=== PATIENT | female | born 1990 | race Caucasian/White ===

== ENCOUNTER → 2018-07-30 | Outpatient (REF) | payer BC ==
[~2018-07-30] MED LIST: ACETTAB3 OR; AMITRIPTYLIN25 MG OR; AMITRIPTYLIN25 MG PO; BROMOCRIPTIN2.5 M1 PO; CALAN PO; CARAFATE1 GM/10 M1 PO; CELEXA40 M1 OR; CIPRO500 MG OR; CITALOPRAM10 MG OR; CRYSELLE-2828 TABS OR; FERR SULFATE325 MG PO; FIORICET PO; FIORICET/COD OR; FLEXERIL PO; GABAPENTIN300 M1 OR; IBUPROFEN800 MG PO; IFEREX 150 OR; IMITREX25 MG OR; L-CARNITINE500 MG OR; LEVAQUIN500 MG OR; LOESTRIN 24 OR; LORTAB 5 OR; LORTAB 7.57.5 MG PO; MAXALT-MLT10 MG OR; MUPIROCIN2 % EX; NAPROSYN500 MG PO; NO; NO HOME MEDS; OMNI-PAC300 MG OR; PERCOCET 5/325M1 TAB OR; PRILOSEC20 MG/CAP PO; PRILOSEC40 MG PO; PROCHLORPER10 MG OR; REGLAN10 MG PO; SYNTHROID112 MCG PO; SYNTHROID125 MCG PO; SYNTHROID75 MCG OR; SYNTHROID75 MCG PO; TOPAMAX25 MG OR; TRI-SPRINTEC OR; VITAMIN B-121000 MCG PO; VITAMIN D32000 UNIT PO; ZANAFLEX4 M2 PO; ZOFRAN ODT4 MG PO
[2018-07-30 10:53] LABS: URINE BILIRUBIN - DIPSTICK NEGATIVE (NEGATIVE); URINE BLOOD DIPSTICK LARGE (NEGATIVE); URINE GLUCOSE - DIPSTICK NEGATIVE (NEGATIVE); URINE KETONE NEGATIVE (NEGATIVE); URINE LEUK ESTERASE NEGATIVE (Negative); URINE NITRITE - DIPSTICK NEGATIVE (Negative); URINE PH 7.5 (4.5-8.0); URINE PROTEIN - DIPSTICK 100 mg/dL (NEG-TRACE); URINE SPECIFIC GRAVITY 1.015; URINE UROBILINOGEN - DIPSTICK 0.2 E.U./dL (0.2)
[2018-07-30 10:54] LABS: HEMATOCRIT 37.4 % (37.0-47.0); HEMOGLOBIN 11.5 g/dl (12.0-16.0); IMMATURE GRANULOCYTES 0.3 % (0.0-5.0); MEAN CORPUSCULAR HGB 25.1 pG CALC (26.0-32.0); MEAN CORPUSCULAR HGB CONC 30.7 g/L CALC (32.0-36.0); NEUT# 5.14 thou/uL (2.00-7.15); RED BLOOD COUNT 4.58 mill/uL (4.20-5.60); RED CELL DISTRI WIDTH 14.6 % (11.5-15.5)
[2018-07-30 10:58] LABS: URINE CLARITY CLOUDY; URINE COLOR RED
[2018-07-30 11:00] LABS: URINE BACTERIA RARE hpf; URINE RBC TNTC RBC/hpf (0-5)
[2018-07-30 11:01] LABS: MEAN CELL VOLUME 81.7 fL CALC (80.0-100.0)
[2018-07-30 11:34] LABS: ALBUMIN 4.5 g/dL (3.2-5.0); ALKALINE PHOSPHATASE 114 u/l (38-126); AMYLASE < 30 u/l (30-110); BILIRUBIN, TOTAL 0.5 mg/dL (0.0-1.4); BUN 10 mg/dL (7-17); BUN/CREATININE RATIO 12 (12-20 (CALC)); CARBON DIOXIDE 26 mmol/l (22-30); CHLORIDE 103 mmol/l (95-108); CREATININE 0.8 mg/dL (0.5-1.0); GFR > 60 ML/MIN (>=60 (CALC)); GFR FOR AFR.AMER. > 60 ML/MIN (>=60 (CALC)); LIPASE 54 u/l (23-300); SODIUM 141 mmol/l (137-146); TOTAL PROTEIN 7.8 g/dL (6.3-8.2)
[2018-07-30 12:03] LABS: ANION GAP 17 (6-22 (CALC)); POTASSIUM 4.9 mmol/l (3.5-5.1); SGOT/AST 78 u/l (14-36)
== END | disposition home or self-care (01) | DRG 392 ==
LOC: LAB 10:22
PROVIDERS: ATTEND Internal Medicine
DX: R10.12 Left upper quadrant pain (principal); B96.1 Klebsiella pneumoniae [K. pneumoniae] as the cause of diseases classified elsewhere

== ENCOUNTER → 2018-08-03 | Outpatient (REF) | payer BC | END | disposition home or self-care (01) | DRG 392 | LOC: CT 12:52 | PROVIDERS: ATTEND Internal Medicine | DX: R10.13 Epigastric pain (principal); R10.32 Left lower quadrant pain ==

== ENCOUNTER 2019-04-13 18:43 | Emergency (ER) | payer BC ==
[~2019-04-13] VITALS: Ht 147.3 cm; Wt 80.0 kg
[2019-04-13 19:35] LABS: HEMATOCRIT 35.7 % (37.0-47.0); IMMATURE GRANULOCYTES 0.2 % (0.0-5.0); MEAN CELL VOLUME 79.9 fL CALC (80.0-100.0); MEAN CORPUSCULAR HGB 24.6 pG CALC (26.0-32.0); MEAN CORPUSCULAR HGB CONC 30.8 g/L CALC (32.0-36.0); NEUT# 8.29 thou/uL (2.00-7.15); RED BLOOD COUNT 4.47 mill/uL (4.20-5.60); RED CELL DISTRI WIDTH 15.6 % (11.5-15.5)
[2019-04-13] MEDS ORDERED: OMEPRAZOLE DR20 MG PO (19:51)
[2019-04-13 19:54] LABS: ALBUMIN 4.5 g/dL (3.2-5.0); ALKALINE PHOSPHATASE 130 u/l (38-126); ANION GAP 18 (6-22 (CALC)); BILIRUBIN, TOTAL 0.3 mg/dL (0.0-1.4); BUN 7 mg/dL (7-17); BUN/CREATININE RATIO 9 (12-20 (CALC)); CARBON DIOXIDE 24 mmol/l (22-30); CHLORIDE 101 mmol/l (95-108); CREATININE 0.7 mg/dL (0.5-1.0); GFR > 60 ML/MIN (>=60 (CALC)); GFR FOR AFR.AMER. > 60 ML/MIN (>=60 (CALC)); SGOT/AST 32 u/l (14-36); SODIUM 139 mmol/l (137-146); TOTAL PROTEIN 7.9 g/dL (6.3-8.2)
[2019-04-13 21:13] VITALS: BP 144/86
[2019-04-13] MEDS ORDERED: MEDDOSEPAK PO (21:17)
[2019-04-13] MEDS ORDERED: PEPCID20 MG PO (21:17)
== END 2019-04-13 21:36 | disposition home or self-care (01) | DRG 918 ==
LOC: ED 18:43
DX: T50.Z95A Adverse effect of other vaccines and biological substances, initial encounter (principal)
CPT/HCPCS: Q9967